=== PATIENT | female | born 1990 | race Caucasian/White ===

== ENCOUNTER 2019-11-08 11:54 | Emergency (ER) | payer SELFPAY ==
[2019-11-08 11:56] VITALS: BP 125/76; PULSE 62; RESP 14; TEMP 36.4; O2SAT 97; BMI 23.0
--- NOTE | 2019-11-08 12:00 | ED.RN ---
PREREGISTERED PT USING SS#, NAME AND POSSIBLE PREVIOUS NAME OF WILIAM. NO PREVIOUS CHART FOUND
--- NOTE | 2019-11-08 12:11 | US_ITS ---
STUDY: FIRST TRIMESTER OBSTETRICAL ULTRASOUND REASON FOR EXAM: Female, 29 years old BLEEDING LMP: 07/28/2019. TECHNIQUE: Transabdominal TECHNICAL QUALITY: Adequate. PRIOR ULTRASOUND: None. FINDINGS: There is visualization of a single gestational sac in a normal intrauterine position. The mean sac diameter (MSD) measures 3.06 cm, indicating an estimated gestational age (EGA) of 8 weeks, 3 days. The gestational sac has a slight irregular contour. There is a visualized yolk sac. The yolk sac measures 3.6 mm. The placenta is non-visualized. There is visualization of an embryo with no cardiac activity, consistent with intrauterine demise. The crown-rump length (CRL) measures 2.25 cm, indicating an estimated gestational age (EGA) of 9 weeks, 0 days. There is no demonstrated cardiac activity. The estimated gestation age (EGA) by LMP is 14 weeks, 5 days. The estimated date of delivery (GODFREY) by LMP is 05/03/2020. The estimated gestation age (EGA) by US is 8 weeks, 5 days. The estimated date of delivery (GODFREY) by US is 06/14/2020. The uterus measures 8.7 cm x 6.2 cm x 5.9 cm. There is no demonstrated uterine fibroid. The cervix is closed. The right ovary is not visualized. The left ovary is not visualized. There is no fluid in the cul de sac. US/Init OB < 14Wks US IMPRESSION: demise. Electronically Signed: Ian Mercer, at 14:08 EDT , Service support ,
--- NOTE | 2019-11-08 12:11 | ED.DCSUM_ITS ---
History of Present Illness Chief Complaint: Vag Bleeding Informant: Patient Narrative: 29-year-old female A3 currently at 12 weeks of by estimation. Her last menstrual period was in July. She has had no follow-up care because she does not have insurance. She states that she believes she is having a miscarriage because she has had some vaginal bleeding since last evening. She states that she was masturbating with her vibrator when she noticed the blood. She said she did have blood on her thighs and it started to slow to spotting. Upon awakening today she had more bleeding. She has some lower suprapubic pain as well. She states she does not have concern for STDs. Past Medical History - Allergies and Home Meds Allergies/Adverse Reactions: Allergies latex Allergy (Verified 11/08/19 11:56) Rash sulfamethoxazole [From Bactrim] Allergy (Verified 11/08/19 11:56) Rash trimethoprim [From Bactrim] Allergy (Verified 11/08/19 11:56) Rash Primary Care Physician: NOT,DEFINED [NON-STAFF] - Surgical History: noncontributory, - - Ectopic Lives: Alone Smoking Status: Unknown if ever smoked Alcohol: None Drugs: None Review of Systems General: Denies: Chills, Fever, Sweats Eyes: Denies: Visual changes - bilaterally, Diplopia ENT: Denies: Rhinorrhea, Sore throat Cardiovascular: Denies: Chest pain, Palpitations Respiratory: Denies: Dyspnea, Cough, Dyspnea on exertion Gastrointestinal: Reports: Abdominal pain, Nausea Genitourinary: Reports: - - Vaginal bleeding. Denies: Dysuria, Hematuria, Frequency Musculoskeletal: Denies: Myalgias, Arthralgias Skin: Denies: Rash, Abscess Neurological: Denies: Headache, Weakness Physical Exam Vital Signs/Narrative: Vital Signs Temp Pulse Resp BP Pulse Ox 11/08/19 11:56 97.5 F L 62 14 125/76 H 97 Inital Vital Signs reviewed: Yes General: Well nourished, Well developed, No Acute Distress Head: Normocephalic, Atraumatic Eyes: Perrl, EOMI. Negative for: Pale conjunctiva ENT: Moist mucous membranes : - - Cervical office is closed. There is clotted blood in the posterior fornix. Midline suprapubic tenderness. Diagnostic/Tx/Re-eval Clinical Impression(s) from Imaging Studies Obstetrics Ultrasound 11/08/19 12:11 IMPRESSION: demise. Electronically Signed: Ian Mercer, at 14:08 EDT , Service support , Laboratory Data 11/08/19 11/08/19 11/08/19 12:22 12:22 12:22 Sodium 139 Potassium 3.6 Chloride 106 Carbon Dioxide 27.0 Anion Gap 6 BUN 10 Creatinine 0.68 Estim Creat Clear Calc 101.89 Est GFR (MDRD) Af Amer 133 Est GFR (MDRD) Non-Af 110 BUN/Creatinine Ratio 14.8 Glucose 82 Calcium 9.0 HCG, Quant 71903 H Urine Color Urine Clarity Urine pH Ur Specific [place] Urine Protein Urine Glucose (UA) Urine Ketones Urine Occult Blood Urine Nitrite Urine Bilirubin Urine Urobilinogen Ur Leukocyte Esterase Urine RBC Urine WBC Ur Squamous Epith Cells Urine Bacteria Urine Mucus Blood Type A POSITIVE 11/08/19 12:37 Sodium Potassium Chloride Carbon Dioxide Anion Gap BUN Creatinine Estim Creat Clear Calc Est GFR (MDRD) Af Amer Est GFR (MDRD) Non-Af BUN/Creatinine Ratio Glucose Calcium HCG, Quant Urine Color Yellow Urine Clarity Sl. Cloudy Urine pH 6.0 Ur Specific [place] 1.020 Urine Protein 15 H Urine Glucose (UA) Normal Urine Ketones Negative Urine Occult Blood 250 H Urine Nitrite Positive H Urine Bilirubin Negative Urine Urobilinogen Normal Ur Leukocyte Esterase 25 H Urine RBC 25-50 SEEN Urine WBC 0-5 SEEN Ur Squamous Epith Cells 0-5 SEEN Urine Bacteria 2+ Urine Mucus 0 SEEN Blood Type - Medical Decision Making Patient presents with NC estimated to be about 12 weeks. She states that after masturbating last night with a vibrator she started to have a lot of vaginal bleeding. Discontinued this morning. Patient states she does have some suprapubic cramping but the pain is not severe. She is concerned that she miscarried. Her blood work is within normal limits. She is Rh+ and therefore does not need RhoGam. She does have a UTI and she was started on Keflex for this. Her transvaginal ultrasound shows what is likely demise. Patient states that she has had miscarriages in the past. She is comfortable going home and she will return as needed. I did not offer her opioids due to her history of opioid overdose. Impression: 1. Likely demise 2. UTI ED Disposition - Plan for ED Patient: Disposition: Home or Assisted Living Instructions: Understanding Urinary Tract Infections (UTIs), ED MISCARRIAGE Incomplete, ED DEMISE Prescriptions: Cephalexin [Keflex] 500 mg PO Q12 #14 cap Prescription Printed Referrals: NOT,DEFINED [NON-STAFF] -
[2019-11-08 12:43] LABS: Mucous, Urine 0 SEEN /hpf (<or=2+)
[2019-11-08 12:52] LABS: Anion Gap 6 (5-15); BUN 10 mg/dL (7-18); BUN/Creat Ratio 14.8 RATIO (10-20); Chloride 106 mmol/L (98-107); Creatinine, Serum 0.68 mg/dL (0.55-1.02); EST Glomerular Filtration Rate 110 mL/min (>60); Est Glom Filt Rate - Afr Amer 133 mL/min (>60); Estimated Creatinine Clearance 101.89 ml/min; Glucose 82 mg/dL (74-106); Potassium 3.6 mmol/L (3.5-5.1); Sodium Level 139 mmol/L (136-145)
[2019-11-08 12:53] LABS: Color, Urine Yellow (Yellow); Glucose, Dipstick Normal (Normal); Ketone-Dipstick Negative (Negative); Leukocyte Esterase-Dipstick 25 /ul (Negative); Nitrite-Dipstick Positive (Negative); Occult Blood-Urine 250 /ul (Negative); Protein-Dipstick 15 mg/dl (Negative); Urine Bilirubin Dipstick Negative (Negative); Urine Clarity Sl. Cloudy (Clear); Urine Urobilinogen Normal (Normal)
[2019-11-08 13:01] LABS: Bacteria 2+ /hpf (None Seen); Red Blood Cells-Urine 25-50 SEEN /hpf (0-5); Squamous Epithelial Cells - UA 0-5 SEEN /hpf (5-10); White Blood Cells 0-5 SEEN /hpf (0-5)
[2019-11-08 13:09] LABS: hCG Titer Quant., Serum 14171 mIU/mL (1-3)
[2019-11-08 14:32] VITALS: RESP 18
== END 2019-11-08 14:33 | disposition home or self-care (01) ==
LOC: ED 12:42
PROVIDERS: Emergency Provider Student in an Organized Health Care Education/Training Program
DX: O20.9 Hemorrhage in early pregnancy, unspecified (principal); O23.41 Unspecified infection of urinary tract in pregnancy, first trimester; Z3A.12 12 weeks gestation of pregnancy
CPT/HCPCS: 76801; 80048; 81001; 84702; 86900; 86901; 99283